=== PATIENT | female | born 1960 | race Caucasian/White ===

== ENCOUNTER 2022-04-12 13:18 | Emergency (ER) | payer MEDICARE, MEDICAID ==
[~2022-04-12] VITALS: Ht 157.5 cm; Wt 70.3 kg
[2022-04-12 13:39] LABS: BASOPHILS % (AUTO) 0 % (0-10); EOSINOPHILS # (AUTO) 0.2 10^3/uL (0.0-0.3); EOSINOPHILS % (AUTO) 3 % (0-10); HEMATOCRIT 39 % (35-52); HEMOGLOBIN 12.9 g/dL (11.5-16.0); LYMPHOCYTES # (AUTO) 1.7 10^3/uL (1.0-4.0); LYMPHOCYTES % (AUTO) 26 % (12-44); MEAN CORPUSCULAR HEMOGLOBIN 30 pg (25-34); MEAN CORPUSCULAR HGB CONC 33 g/dL (32-36); MEAN CORPUSCULAR VOLUME 91 fL (80-99); MEAN PLATELET VOLUME 9.4 fL (9.0-12.2); MONOCYTES # (AUTO) 0.6 10^3/uL (0.0-1.0); MONOCYTES % (AUTO) 8 % (0-12); NEUTROPHILS # (AUTO) 4.2 10^3/uL (1.8-7.8); NEUTROPHILS % (AUTO) 63 % (42-75); PLATELET COUNT 294 10^3/uL (130-400); WHITE BLOOD COUNT 6.7 10^3/uL (4.3-11.0)
[2022-04-12 13:46] LABS: ALBUMIN 4.2 GM/DL (3.2-4.5); CHLORIDE 101 MMOL/L (98-107); POTASSIUM 4.1 MMOL/L (3.6-5.0); SODIUM 135 MMOL/L (135-145)
[2022-04-12 13:47] LABS: CALCIUM 9.9 MG/DL (8.5-10.1)
[2022-04-12 13:48] LABS: GLUCOSE 121 MG/DL (70-105); TOTAL PROTEIN 7.6 GM/DL (6.4-8.2)
[2022-04-12 13:49] LABS: CARBON DIOXIDE 21 MMOL/L (21-32)
[2022-04-12 13:50] LABS: BILIRUBIN,TOTAL 0.7 MG/DL (0.1-1.0)
[2022-04-12 13:52] LABS: ALKALINE PHOSPHATASE 101 U/L (40-136); CREATININE SERUM 0.76 MG/DL (0.60-1.30); GFR ESTIMATED 89
[2022-04-12 13:53] LABS: BUN/CREATININE RATIO 14
[2022-04-12 13:55] LABS: ALANINE AMINOTRANSFERASE 12 U/L (0-55)
[2022-04-12] MEDS ORDERED: methylPREDNISolone 125 MG (Solu-MEDROL) VIAL IVP ONE (14:00)
[2022-04-12] MEDS ORDERED: RT-ALBUTEROL/IPRATROPIUM 3 ML (DUONEB) VIAL INH ONE (14:00)
--- NOTE | 2022-04-12 14:04 | Diagnostic Imaging Report ---
EXAMINATION: Chest 1 view HISTORY: SOB COMPARISON: None available. FINDINGS: Heart size and pulmonary vasculature are normal. The lungs are clear without consolidation, pleural effusion, or pneumothorax. The osseous structures are intact. IMPRESSION: 1. No acute radiographic abnormality in the chest. Dictated by: Dictated on workstation # [id number]
[2022-04-12] MEDS: LORazepam 0.5 MG (ATIVAN) TABLET PO STA ×2 (14:57→14:59)
[2022-04-12] MEDS ORDERED: PRD20T PO (15:10)
[2022-04-12] MEDS ORDERED: OMEP40CA6 PO (15:10)
[2022-04-12] MEDS ORDERED: LORA-404 PO (15:12)
--- NOTE | 2022-04-12 15:13 | ED Respiratory ---
General Chief Complaint: Respiratory Problems Stated Complaint: SOA Nursing Triage Note: PT AMBULATE TO ROOM 01 WITH C/O SOB X1 WEEK. Source: patient Exam Limitations: no limitations (BANDAR DAY APRN) History of Present Illness Date Seen by Provider: Apr 12, 2022 Time Seen by Provider: 13:30 Initial Comments Patient is a 61-year-old female who presents to the emergency department for evaluation of shortness of breath for the past week. She has a history of COPD for which she wears home oxygen at 3 L via nasal cannula at all times. Patient also endorses she has anxiety and feels this often exacerbates her symptoms. She denies any cough, congestion, chest pain, dependent edema. She has been taking home albuterol treatments with varying degrees of improvement. (BANDAR DAY APRN) Allergies and Home Medications Allergies Coded Allergies: No Known Drug Allergies (Unverified , 04/12/22) Patient Home Medication List Home Medication List Reviewed: Yes (BANDAR DAY APRN) Lorazepam (Ativan) 0.5 Mg Tablet, 0.5 MG PO TID PRN for ANXIETY Prescribed by: Bandar Day on 04/12/22 151 Omeprazole (Omeprazole) 40 Mg Capsule.dr, 40 MG PO DAILY Prescribed by: Bandar Day on 04/12/22 151 Prednisone (Prednisone) 20 Mg Tab, 40 MG PO DAILY Prescribed by: Bandar Day on 04/12/22 151 Review of Systems Review of Systems Constitutional: no symptoms reported EENTM: no symptoms reported Respiratory: see HPI, short of breath Cardiovascular: no symptoms reported Gastrointestinal: no symptoms reported Genitourinary: no symptoms reported Musculoskeletal: no symptoms reported (BANDAR DAY APRN) Past [id number] Hx Patient Social History Tobacco Use?: No Smoking Status: Former Smoker Use of E-Cig and/or Vaping dev: No Use of E-Cig and/or Vaping Julio: Never a User Substance use?: No Alcohol Use?: No Pt feels they are or have been: No (BANDAR DAY APRN) Immunizations Up To Date COVID19 Vaccine [employer]: [facility] (BANDAR DAY APRN) Physical Exam Vital Signs - First Documented 04/12/22 04/12/22 13:23 15:23 Temp 36.2 Pulse 119 Resp 23 B/P (MAP) 154/91 Pulse Ox 97 O2 Delivery Room Air O2 Flow Rate 3.00 (SHILPA NUÑEZ MD) Capillary Refill : Less Than 3 Seconds (BANDAR DAY APRN) Height: '" Weight: lbs. oz. kg; 28.00 BMI Method: General Appearance: WD/WN, no apparent distress HEENT: PERRL/EOMI, normal ENT inspection, TMs normal, pharynx normal Neck: non-tender, full range of motion, supple, normal inspection Respiratory: chest non-tender, lungs clear, normal breath sounds, no respiratory distress, no accessory muscle use Cardiovascular: regular rate, rhythm Gastrointestinal: normal bowel sounds, non tender, soft, no organomegaly, no pulsatile mass Extremities: normal range of motion, non-tender Neurologic/Psychiatric: no motor/sensory deficits, alert, normal mood/affect, oriented x 3 Skin: normal color, warm/dry (BANDAR DAY APRN) Progress/Results/Core Measures Suspected Sepsis SIRS Temperature: Pulse: 119 Respiratory Rate: 23 Laboratory Tests 04/12/22 13:21: White Blood Count 6.7 Blood Pressure / Mean: Laboratory Tests 04/12/22 13:21: Creatinine 0.76, Platelet Count 294, Total Bilirubin 0.7 (BANDAR DAY APRN) Results/Orders Lab Results Laboratory Tests Test 04/12/22 13:21 04/12/22 13:47 Range/Units White Blood Count 6.7 4.3-11.0 10^3/uL Red Blood Count 4.27 3.80-5.11 10^6/uL Hemoglobin 12.9 11.5-16.0 g/dL Hematocrit 39 35-52 % Mean Corpuscular Volume 91 80-99 fL Mean Corpuscular Hemoglobin 30 25-34 pg Mean Corpuscular Hemoglobin Concent 33 32-36 g/dL Red Cell Distribution Width 12.6 10.0-14.5 % Platelet Count 294 130-400 10^3/uL Mean Platelet Volume 9.4 9.0-12.2 fL Immature Granulocyte % (Auto) 0 % Neutrophils (%) (Auto) 63 42-75 % Lymphocytes (%) (Auto) 26 12-44 % Monocytes (%) (Auto) 8 0-12 % Eosinophils (%) (Auto) 3 0-10 % Basophils (%) (Auto) 0 0-10 % Neutrophils # (Auto) 4.2 1.8-7.8 10^3/uL Lymphocytes # (Auto) 1.7 1.0-4.0 10^3/uL Monocytes # (Auto) 0.6 0.0-1.0 10^3/uL Eosinophils # (Auto) 0.2 0.0-0.3 10^3/uL Basophils # (Auto) 0.0 0.0-0.1 10^3/uL Immature Granulocyte # (Auto) 0.0 0.0-0.1 10^3/uL Sodium Level 135 135-145 MMOL/L Potassium Level 4.1 3.6-5.0 MMOL/L Chloride Level 101 98-107 MMOL/L Carbon Dioxide Level 21 21-32 MMOL/L Anion Gap 13 5-14 MMOL/L Blood Urea Nitrogen 11 7-18 MG/DL Creatinine 0.76 0.60-1.30 MG/DL Estimat Glomerular Filtration Rate 89 BUN/Creatinine Ratio 14 Glucose Level 121 H 70-105 MG/DL Calcium Level 9.9 8.5-10.1 MG/DL Corrected Calcium 9.7 8.5-10.1 MG/DL Total Bilirubin 0.7 0.1-1.0 MG/DL Aspartate Amino Transf (AST/SGOT) 18 5-34 U/L Alanine Aminotransferase (ALT/SGPT) 12 0-55 U/L Alkaline Phosphatase 101 40-136 U/L Troponin I < 0.028 <0.028 NG/ML Total Protein 7.6 6.4-8.2 GM/DL Albumin 4.2 3.2-4.5 GM/DL Influenza Type A (RT-PCR) Not Detected Not Detecte Influenza Type B (RT-PCR) Not Detected Not Detecte SARS-CoV-2 RNA (RT-PCR) Not Detected Not Detecte (SHILPA NUÑEZ MD) Vital Signs/I&O 04/12/22 04/12/22 04/12/22 04/12/22 13:23 13:23 13:26 14:05 Temp 36.2 Pulse 119 Resp 23 B/P (MAP) Pulse Ox 97 93 96 O2 Delivery Room Air Nasal Cannula Nasal Cannula Nasal Cannula O2 Flow Rate 3.00 3.00 3.00 04/12/22 15:23 Temp 37.0 Pulse 68 Resp 18 B/P (MAP) 154/91 Pulse Ox 98 O2 Delivery Room Air (SHILPA NUÑEZ MD) Vital Signs/I&O Capillary Refill : Less Than 3 Seconds (BANDAR DAY APRN) Progress Note : Progress Note Patient is nontoxic and well-hydrated on exam. No adventitious lung sounds or increased work of breathing noted. Patient is not hypoxic on her home 3 L of oxygen. Chest x-ray obtained which is acutely negative. EKG without acute ischemic change or arrhythmia. Troponin negative. Laboratory evaluation is largely unremarkable. Flu and COVID testing are negative. Patient was given a DuoNeb with minimal improvement in symptoms. She was also given IV Solu-Medrol. Patient was given 0.5 mg of Ativan with subsequent improvement in symptoms. She will be discharged home with recommendations for supportive care and close follow-up with PCP. Return precautions for urgent symptomology discussed. Patient verbalized understanding. (BANDAR DAY APRN) ECG EKG : EKG Time: 13:42 Rate: 94 Rhythm: Normal Sinus ECG Comparisson: No Previous ECG Available (BANDAR DAY APRN) Departure Impression Primary Impression: COPD exacerbation Additional Impression: Anxiety Disposition: 01 HOME, SELF-CARE Condition: Stable Departure-Patient Inst. Decision time for Depature: 15:05 (BANDAR DAY APRN) Referrals: ALEX JALLOH DO Patient Instructions: COPD Exacerbation, Adult ED Scripts Lorazepam (Ativan) 0.5 Mg Tablet 0.5 MG PO TID PRN for ANXIETY for 3 Days, #9 TAB 0 Refills Prov: BANDAR DAY APRN 04/12/22 Omeprazole (Omeprazole) 40 Mg Capsule.dr 40 MG PO DAILY for 14 Days, #14 CAP 0 Refills Prov: BANDAR DAY APRN 04/12/22 Prednisone (Prednisone) 20 Mg Tab 40 MG PO DAILY for 4 Days, #8 TAB 0 Refills Prov: BANDAR DAY APRN 04/12/22 ATTENDING PHYSICIAN NOTE: I was physically present as attending physician in the emergency department during the care of this patient, but I was not directly involved in the decision making or delivery of care for this patient. (SHILPA NUÑEZ MD) BANDAR DAY APRN Apr 12, 2022 15:13 SHILPA NUÑEZ MD Apr 14, 2022 21:37
[2022-04-12 15:23] VITALS: BP 154/91
== END 2022-04-12 15:23 | disposition home or self-care (01) ==
LOC: ER 13:20
DX: J44.1 Chronic obstructive pulmonary disease with (acute) exacerbation (principal); F41.9 Anxiety disorder, unspecified; Z87.891 Personal history of nicotine dependence; Z20.822 Contact with and (suspected) exposure to COVID-19
CPT/HCPCS: 36415; 71045; 80053; 84484; 85025; 87636; 93005; 93041; 94640